=== PATIENT | male | born 1995 | race African-American/Black ===

== ENCOUNTER 2019-08-17 18:43 | Emergency (ER) | payer BC, SELFPAY ==
--- NOTE | ~2019-08-17 | CT_ITS ---
EXAMINATION: CT abdomen pelvis wo con DATE: 08/17/2019 19:34 INDICATION: Right flank pain radiating to groin TECHNIQUE: Computed tomography (CT) of the abdomen and pelvis was performed without intravenous contr ast. Automated exposure control and iterative reconstruction technique were employed. Exam dose: 724 .02 mGy-cm total exam DLP. COMPARISON: 06/25/2019 CT abdomen pelvis with IV contrast material FINDINGS: The lung bases are clear. Normal heart size. No pericardial or pleural effusion. The liver, gallbladder, bile ducts, spleen, pancreas and pancreatic duct are unremarkable. Normal mor phology of the adrenal glands. No renal mass lesion is evident on this limited noncontrast examinatio n. No urinary tract calculus or hydroureteronephrosis. Normal caliber of the abdominal aorta. No intraperitoneal or retroperitoneal or pelvic mass lesion or adenopathy or ascites. There are multiple nonenlarged mesenteric lymph nodes; consider mesenteric ad enitis. Normal appendix. No bowel obstruction. No intraperitoneal free air. The urinary bladder, prostate gland and seminal vesicles are unremarkable. Small fat-containing right greater than left inguinal hernias. Very small fat-containing umbilical he rnia. Included skeletal structures are unremarkable. IMPRESSION: Shotty nonenlarged mesenteric lymph nodes; consider mesenteric adenitis No urinary tract calculus or hydroureteronephrosis Normal appendix Reviewed, dictated and finalized at [facility] Reviewed, dictated and finalized at [facility] IMPRESSION: Shotty nonenlarged mesenteric lymph nodes; consider mesenteric bess nitis No urinary tract calculus or hydroureteronephrosis Normal appendix
[2019-08-17 18:51] VITALS: BP 144/91; PULSE 85; RESP 16; TEMP 36.3; O2SAT 100
[2019-08-17 19:02] LABS: Basophils Absolute Auto 0.1 K/mm3 (0.0-0.1); Basophils Percent Auto 0.7 % (0.2-1.2); Eosinophils Absolute Auto 0.1 K/mm3 (0-0.3); Eosinophils Percent Auto 1.3 % (0-4.4); Hematocrit 43.2 % (42.0-52.0); Hemoglobin 13.9 g/dL (14.0-18.0); Immature Granulocyte Absolute 0.03 K/mm3 (0.00-0.031); Immature Granulocyte Percent A 0.3 % (0-0.5); Lymphocytes Absolute Auto 2.29 K/mm3 (0.9-3.2); Mean Corpuscular HGB Conc 32.2 g/dl (32-36); Mean Corpuscular Hemoglobin 28.6 pg (26-34); Mean Corpuscular Volume 88.9 fl (80-100); Mean Platelet Volume 10.2 fl (7.4-10.4); Monocytes Absolute Auto 0.7 K/mm3 (0.1-0.6); Monocytes Percent Auto 6.6 % (2.6-8.5); Neutrophils Absolute Auto 7.2 K/mm3 (1.3-6.7); Neutrophils Percent Auto 69.1 % (45.5-73.1); Platelet Count Result 554 k/mm3 (150-375); Red Blood Count 4.86 M/mm3 (4.6-6.20); Red Cell Distribution Width 13.7 % (11.5-14.5); White Blood Count 10.4 K/mm3 (4.5-10.0)
[2019-08-17 19:07] LABS: Add Urine Microscopic? NO; Appearance Urine Clear (Clear); Bilirubin Urine Negative (Negative); Blood Urine Negative (Negative); Color Urine Yellow (Yellow); Glucose Urine UA Negative (Negative); Ketones Urine Negative (Negative); Leukocyte Esterase Ur Negative LEU/UL (Negative); Mucus Urine Rare /lpf; Nitrate Urine Negative (Negative); Protein Urine Negative (Negative); RBC Urine 0-2 /hpf (0-2); Specific Grav Ur 1.017 (1.001-1.035); Squamous Epithelial Cell Urine Rare /hpf (Few); Urobilinogen Urine Negative mg/dL (<2.0); WBC Urine 0-3 /hpf
[2019-08-17 19:14] LABS: Alanine Aminotransferase 37 U/L (4-50); Albumin Level 4.5 g/dL (3.5-5.1); Alkaline Phosphatase 189 U/L (38-126); Aspartate Amino Transferase 30 U/L (17-59); Bilirubin,Total 0.3 mg/dL (0.2-1.3); Blood Urea Nitrogen 12 mg/dL (9-20); Carbon Dioxide 30 mmol/L (22-30); Chloride 98 mmol/L (98-107); Estimated CRCL calculation 154 ml/min; Estimated Glomerular Filt Rate > 60; Glucose 94 mg/dL (75-110); Lipase 50 U/L (23-300); Potassium 3.8 mmol/L (3.4-5.0); Sodium 137 mmol/L (137-145)
--- NOTE | 2019-08-17 19:28 | ED.ABDPAIN ---
HPI - Abdominal Pain General Chief Complaint: Abdominal Pain Stated Complaint: R FLANK PAIN Time Seen by Provider: 08/17/19 19:03 Source: patient Mode of arrival: ambulatory Limitations: no limitations History of Present Illness HPI narrative: This is a 24 year old male that presents to the ER for right sided flank pain since yesterday. Associated with nausea and dysuria. Reports the pain radiates into his abdomen sometimes. Reports the pain is a constant dull ache and at times sharp. Reports he has been having diarrhea intermittently for the last couple months and had seen a GI doctor for this. He had a colonoscopy, but has not gotten the results yet. Denies fever, vomiting, or hematuria. Related Data Home Medications Medication Instructions Recorded Confirmed buspirone mg 08/17/19 08/17/19 escitalopram oxalate mg 08/17/19 omeprazole 08/17/19 Allergies Allergy/AdvReac Type Severity Reaction Status Date / Time shellfish derived Allergy Swelling Verified 08/17/19 18:56 of Lip/Tongue/Throat Review of Systems Review of Systems: Narrative: CONSTITUTIONAL: Denies fever GASTROINTESTINAL: Reports abdominal pain, nausea, diarrhea. Denies vomiting GENITOURINARY: Reports dysuria. Denies hematuria. MUSCULOSKELETAL: Reports back pain All systems reviewed & are unremarkable except as noted in HPI and below PMFSH Social History Social History (Updated 08/17/19 @ 19:33 by Jammie Conrad PA-C) Smoking status: Former smoker Substance use: never Gender identity (if verbalized by the patient): Male Exam Narrative: Exam Narrative: GENERAL: Well-appearing, well-nourished, and in no acute distress. HEAD: Normocephalic, atraumatic. EYES: EOMI. CHEST: Clear to auscultation. No respiratory distress. No wheezes rales or rhonchi HEART: Regular rate and rhythm. No murmur heard. Normal peripheral pulses. ABDOMEN: Soft, nontender, nondistended, normal active bowel sounds. No CVA tenderness EXTREMITIES: Normal range of motion. No edema. SKIN: Warm, dry, no rash. NEURO: No focal deficits. Alert and oriented x3. PSYCH: Normal mood and affect Course Consultations Consultation #1: Spoke with patient's GI doctor, Dr. Mohr. He would like him started on Cipro twice a day and will follow-up with him in clinic on Monday. Patient was given warnings to return to the ER Date: 08/17/19 Time: 20:26 Vital Signs Vital signs: Vital Signs Temperature 97.3 F L 08/17/19 18:51 Pulse Rate 85 08/17/19 18:51 Respiratory Rate 16 08/17/19 18:51 Blood Pressure 144/91 H 08/17/19 18:51 Pulse Oximetry 100 08/17/19 18:51 Temperature 97.3 F L 08/17/19 18:51 Pulse Rate 85 08/17/19 18:51 Respiratory Rate 16 08/17/19 18:51 Blood Pressure 144/91 H 08/17/19 18:51 Pulse Oximetry 100 08/17/19 18:51 MDM - Abdominal Pain MDM Narrative Medical decision making narrative: Patient presents the emergency department for right-sided flank pain and right-sided abdominal pain since yesterday. Also reports over the last couple of months he has been having intermittent diarrhea and has seen a GI doctor for this and had a colonoscopy. Patient is afebrile and nontoxic-appearing. White blood cell count mildly elevated to 10.4. Mild normocytic anemia with hemoglobin of 13.9. Metabolic panel is without acute changes, other than mild elevation in alk phos. UA is normal. CT abdomen pelvis shows shotty nonenlarged mesenteric lymph nodes, consider mesenteric adenitis. Spoke with patient's GI doctor, Dr. Mohr. He would like him started on Cipro twice a day and will follow-up with him in clinic on Monday. Patient was given warnings to return to the ER Lab Data Attestation: I reviewed the patient's lab results. Result diagrams: 08/17/19 18:57 08/17/19 18:57 Labs: Lab Results 08/17/19 08/17/19 08/17/19 Range/Units 18:57 18:57 18:57 WBC 10.4 H (4.5-10.0) K/mm3 RBC 4.86 (4.6-6.20) M/mm3 H
[2019-08-17 20:38] VITALS: BP 132/88; PULSE 88; RESP 16; O2SAT 97
== END 2019-08-17 20:59 | disposition home or self-care (01) ==
PROVIDERS: Emergency Provider Emergency Medicine; PCP Emergency Medicine
DX: I88.0 Nonspecific mesenteric lymphadenitis (principal); Z87.891 Personal history of nicotine dependence
CPT/HCPCS: 36415; 74176; 80053; 81003; 83690; 85025; 99284

== ENCOUNTER 2021-04-27 00:58 | Emergency (ER) | payer OTHER, SELFPAY ==
[2021-04-27 01:03] VITALS: BP 150/90; PULSE 83; RESP 19; TEMP 36.7; O2SAT 99
--- NOTE | 2021-04-27 01:21 | ED.DENTAL ---
HPI - Dental/Oral General Chief complaint: Dental/Oral Stated complaint: lower jaw pain Time Seen by Provider: 04/27/21 01:20 Source: patient Mode of arrival: ambulatory Limitations: no limitations History of Present Illness HPI Narrative: Patient is a 25-year-old male presenting for evaluation of right lower tooth and jaw pain. Patient reports he developed tooth pain yesterday. Pain is located at posterior, right lower molars, aching, throbbing in nature with radiation into the jaw. Patient reports pain with biting. Patient states he has not been to a dentist in many years and does have a history of dental cavities. He does not remember an inciting injury or biting onto something hard. No history of dental fracture. No trauma to the face. He reports pain with movement of the jaw. He denies neck swelling, difficulty swallowing, shortness of breath. No fever, chills, nausea, vomiting. No difficulty breathing. Patient has taken Tylenol and Midol without improvement in his symptoms. Patient denies ear pain or facial swelling. PT denies rhinorrhea, congestion or sore throat. Related Data Home Medications Medication Instructions Recorded Confirmed buspirone mg 08/17/19 08/17/19 escitalopram oxalate mg 08/17/19 omeprazole 08/17/19 Allergies Allergy/AdvReac Type Severity Reaction Status Date / Time shellfish derived Allergy Swelling Verified 04/27/21 01:06 of Lip/Tongue/Throat Review of Systems Review of Systems: CONSTITUTIONAL: Denies fever HEENT: Reports right lower jaw pain and tooth pain CARDIOVASCULAR: Denies chest pain RESPIRATORY: Denies cough or dyspnea. GASTROINTESTINAL: Denies abdominal pain SKIN: Denies rash MUSCULOSKELETAL: Denies back pain NEUROLOGIC: Denies headache [facility] Past Medical History Medical History Healthy adult Surgical History Surgical History No pertinent past surgical history Social History Social History Smoking status: Current every day smoker Tobacco type: e-cigarettes/vaping Substance use: never Gender identity (if verbalized by the patient): Male Exam Narrative: GENERAL: Awake, alert, conversant HEAD: Normocephalic, atraumatic. EYES: PERRLA and EOMI. ENT: Nares clear, no rhinorrhea or epistaxis. Mucous membranes moist. Uvula is midline. Dental caries present. No dental abscess or periapical abscess identifiable. No tongue edema. No trismus. Pain with palpation of tooth 30 and 31. NECK: Supple. No lymphadenopathy. No submandibular lymphadenopathy. No cervical adenopathy. CHEST: No respiratory distress, breathing even and non labored HEART: Regular rate, sinus rhythm ABDOMEN:Non distended, non tender EXTREMITIES: Normal range of motion. No edema. SKIN: Warm, dry, no rash. NEURO:No focal deficits. Alert and oriented x3 Course Vital Signs Vital signs: Vital Signs Temperature 36.7 C 04/27/21 01:03 Pulse Rate 83 04/27/21 01:03 Respiratory Rate 19 04/27/21 01:03 Blood Pressure 150/90 H 04/27/21 01:03 Pulse Oximetry 99 04/27/21 01:03 Temperature 36.7 C 04/27/21 01:03 Pulse Rate 83 04/27/21 01:03 Respiratory Rate 19 04/27/21 01:03 Blood Pressure 150/90 H 04/27/21 01:03 Pulse Oximetry 99 04/27/21 01:03 MDM - Dental/Oral MDM Narrative Medical decision making narrative: Patient's pain is consistent with dental caries/toothache. Pt with right lower molar pain and pain with palpation of tooth 30 and 31. At the time of assessment there are no signs of systemic illness, no focal signs of space-occupying abscess or lesions, no signs of Fermin angina or other concerning retropharyngeal infection. The patient is controlling her secretions well without signs of airway compromise. Patient given first dose of antibiotic in the ER as well as pain medica
[2021-04-27] MEDS: oxyCODONE/ACETAMINOPHEN (*CRX) 5-325 MG TABLET 1 TABLET PO (01:58)
[2021-04-27] MEDS: AMOXICILLIN/CLAVULANATE K 875-125 MG TAB 1 TABLET PO (01:58)
[2021-04-27] MEDS: KETOROLAC (*BKC) 60 MG/2 ML VIAL 30 MG IM (01:59)
[2021-04-27 02:07] VITALS: BP 155/85; PULSE 98; RESP 14; O2SAT 99
== END 2021-04-27 02:06 | disposition home or self-care (01) ==
PROVIDERS: Emergency Provider Emergency Medicine; PCP Emergency Medicine
DX: K08.89 Other specified disorders of teeth and supporting structures (principal)
CPT/HCPCS: 96372; 99283; A9270; J1885

== ENCOUNTER 2024-12-31 17:02 | Emergency (ER) | payer SELFPAY ==
--- NOTE | ~2024-12-31 | XR_ITS ---
EXAMINATION: XR chest 1V portable Exam Date/Time: 12/31/2024 17:53 CDT HISTORY: pre-syncope Comparison: 09/02/2017. RESULT: Lines, tubes, and devices: None. Lungs and pleura: Clear. Cardiomediastinal silhouette: Stable. Other: No acute osseous or upper abdominal finding. IMPRESSION: No acute cardiopulmonary process. Reviewed, dictated and finalized at location K.
--- OUTSIDE RECORDS SUMMARY | 2024-12-31 17:04 | XMS_ITS | Encounter Summary ---
Author Organization [facility] Address [address] [place] [address] Phone Care Team Providers Care Dtp Operator Name Role Phone Ayush Villagran Primary Care Provider [phone] Encounter Details Date Type Department Care Team (Late st Contact Info) Description 01/23/2020 Telephone [facility] [address] [address] Parker Pina MD [address] [address] Social History Tobacco Use Types Packs/Day Years Used Date Smoking Tobacco: Never Smokeless Tobacco: Never Alcohol Use Standard Drinks/Week Comments Never 0 (1 standard drink = 0.6 oz pur e alcohol) AUDIT-C Answer Date Recorded Frequency of Alcohol Consumption Never 07/26/2019 Average Number of Drinks Not on file 020 Frequency of Binge Drinking Not on file 07/07 PHQ-2 Answer Date Recorded Total Score - Questions 1-9 0 10/03 Education Answer Date Recorded What is the highest level of school you have completed or the highest degree you have received? 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 documented in this encounter Plan of Treatment Not on file documented as of this encounter Visit Diagnoses Not on filedocumented in this encounter Additional Health Concerns Assessment Noted Time PHQ-9 Depression Total Score: 0 10/17/19 20 11:03 AM CDT documented as of this encounter Care Teams Dtp Operator Relationship Specialty Start Date End Date Ayush Villagran [address] [place] [address] PCP - General Family Medicine 07/17/19 documented as of this encounter
--- OUTSIDE RECORDS SUMMARY | 2024-12-31 17:04 | XMS_ITS | Clinical Summary ---
Author Organization [facility] Address [address] [place] [address] Phone Care Team Providers Care Supervisor Production Name Role Phone Ayush Villagran Primary Care Provider [phone] Allergies Active Allergy Reactions Criticality Noted Date Comments Shellfish Allergy Itching 07/26/2019 Throat itchy Medications escitalopram (LEXAPRO) 10 MG Tablet TK 1 T PO QD 0 Active omeprazole (PRILOSEC) 20 MG CAPSULE DELAYED RELEASE TK 1 C PO QD AC 0 Active busPIRone HCl 7.5 MG Tablet TK 1 T PO BID 0 Active EPINEPHRINE HCL, ANAPHYLAXIS, IM by Intramuscular route. Active ferrous sulfate 325 (65 Fe) MG Tablet Take 1 Tab by mouth daily. 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 file Not on file Not on file Last Filed Vital Signs Vital Sign Reading Time Taken Comments Blood Pressure 124/80 10/17/2019 11:00 AM CDT Pulse 110 10/17/2019 11:00 AM CDT Temperature 36.2 C (97.1 F) 10/17/2019 11:00 AM CDT Respiratory Rate 18 10/17/2019 11:00 AM CDT Oxygen Saturation 96% 10/17/2019 11:00 AM CDT Inhaled Oxygen Concentration - - Weight 94.3 kg (208 lb) 10/17/2019 11:00 AM CDT Height 172 cm (5' 7.72) 10/17/2019 11:00 AM CDT Body Mass Index 31.89 10/17/2019 11:00 AM CDT Plan of Treatment Health Maintenance Due Date Last Done Comments Hepatitis C Virus (HCV) Screening 1994 TdaP Immunization 1994 Human Papillomavirus (HPV) Immunization (1 - Male 3-dose series) 2009 Hepatitis B Immunization (1 of 3 - 19+ 3-dose series) 2013 SARS-COV-2 Immunization ( - 2023- season) 2024 Influenza Immunization (#1) 2025 Respiratory Syncytial Virus (RSV) Immunization (Adult) (1 - 1-dose 75+ series) 2069 Meningococcal Immunization (ACWY) Aged Out No longer eligible based on patient's age to complete this topic Pneumococcal Immunization Combined Aged Out No longer eligible based on patient's age to complete this topic Rotavirus Immunization Aged Out No lo nger eligible based on patient's age to complete this topic Insurance [facility] Care Teams Supervisor Production Relationship Specialty Start Date End Date Ayush Villagran [address] [place] [address] PCP - General Family Medicine 07/17/19
--- OUTSIDE RECORDS SUMMARY | 2024-12-31 17:04 | XMS_ITS | Continuity of Care Document ---
Author Organization [facility] Address [address] [place] [address] Phone Care Team Providers Care Risk Advisor Name Role Phone Ayush Villagran MD Unavailable Unavailable Allergies, Adverse Reactions, Alerts Substance Reaction Status Criticality No Known Allergies Active No Inform ation Medications Medication Instructions Dosage Effective Dates (start - stop) Status Comments buspirone 7.5 mg tablet take 1 tablet by oral route 2 times every day 7.5 MG - Active avoid driving or operate machines Lexapro 10 mg tablet take 1 tablet by oral route every day 10 MG - Active Nexium 20 mg capsule,delayed release take 1 capsule by oral route every day at least 1 hour before a meal swallowing whole. Do not crush or chew granules. 20 MG - Active Procedures Procedure Date PREV VISIT, EST, AGE 18-39 OFFICE/OUTPATIENT VISIT, EST OFFICE/OUTPATIENT VISIT, EST OFFICE/OUTPATIENT VISIT, EST PREV VISIT, EST, AGE 18-39 OFFICE/OUTPATIENT VISIT, EST OFFICE/OUTPATIENT VISIT, EST OFFICE/OUTPATIENT VISIT, EST OFFICE/OUTPATIENT VISIT, EST PREV VISIT, NEW, AGE 18-39 OFFICE/OUTPATIENT VISIT, NEW Advance Directives Directive Yes / No Effective Date File Name No Information Encounters Encounter Description Practice Location Reason(s) For Visit Diagnoses Date Provider Providers Copied on Encounter [facility], [address] [place] [address], [id number], [place] tel:[phone] [facility] No Information Aug- 2 Tyshawn Peacock. [address], [address], [place], [place], [address] , [place]. tel:[phone] Referring Provider: Randy Arango [address], [place], [place], [id number]. tel:[phone] PREV VISIT, EST, AGE 18-39 [facility], [address], [place], [place], [address], [place] tel:[phone] [facility] physical (chief complaint) Encounter for general adult medical exam w abnormal findingsGeneralized Anxiety DisorderAbnormal level of alkaline phosphataseGERD w/o esophagitisAbnormal weight gainFatigue 0- 1 Tyshawn Peacock. [address], [place], [place], [address] , [place]. tel:[phone] Referring Provider: Randy Arango [address], [place], [place], [address]. tel:[phone] OFFICE/OUTPA TIENT VISIT, EST [facility], [address], [place], [place], [address], [place] tel:[phone] [facility] platelet1 (chief complaint) GERD1 (chief complaint) anxiety1 (chief complaint) Essential thrombocytosisGERD w/o esophagitisAbnormal level of alkaline phosphataseGenerali zed Anxiety DisorderIleitis Dec-0 2 0 Tyshawn Peacock. [address], [address], [place], [place], [address] , [place]. tel:[phone] Referring Provider: Randy Arango [address], [place], [place], [address]. tel:[phone] OFFICE/OUTPA TIENT VISIT, EST [facility], [address], [place], [place], [address], [place] tel:[phone] [facility] abd pain1 (chief complaint) alk phos (chief complaint) Abnormal level of alkaline phosphataseEssentia l thrombocytosisLeuko cytosisIleitisGERD w/o esophagitis Kam-2 8 0 Tyshawn Peacock. [address], [place], [place], [address] , [place]. [phone] Referring Provider: Randy Arango [address], [place], [place], [address]. tel:[phone] PREV VISIT, EST, AGE 18-39 [facility], [address], [place], [place], [address], [place] [phone] [facility] Medicine physical (chief complaint) Encounter for general adult medical exam w abnormal findingsGeneralized Anxiety DisorderAbdominal painFatigueEssentia l (primary) hypertensionGERD w/o esophagitisPain in left upper arm 9 Tyshawn Santiago [address], [place], [place], [address] , [place]. [phone] Referring Provider: Randy Arango [address], [place], [place], [address]. tel:[phone] OFFICE/OUTPA TIENT VISIT, EST [facility], [address], [place], [place], [address], [place] tel:[phone] [facility] anxiety1 (chief complaint) Generalized Anxiety Disorder 0 8 Tyshawn Santiago [address], [place], [place], [address] , [place]. [phone] Referring Provider: Randy Arango [address], [place], [place], [address]. tel:[phone] OFFICE/OUTPA TIENT VISIT, EST [facility], [address], [place], [place], [address], [place] tel:[phone] [facility] anxiety1 (chief complaint) rectal bleeding (chief complaint) chest pain1 (chief complaint) GERD1 (chief complaint) PleurisyGERD w/o esophagitisGenerali zed Anxiety DisorderOccult blood in stool 8 Tyshawn Santiago [address], [place], [place], [address] , [place]. tel:[phone] Referring Provider: Ayush Villagran, [address], [place], [place], [address]. tel:[phone] OFFICE/OUTPA TIENT VISIT, EST [facility], [address], [place], [place], [address], [place] [phone] [facility] anxiety1 (chief complaint) diarrhea1 (chief complaint) chest pain1 (chief complaint) Chest painPleurisyViral infectionGeneralize d Anxiety Disorder Apr-1 8 Tyshawn Peacock. [address], [place], [place], [address] , [place]. tel:[phone] Referring Provider: Randy Arango [address], [place], [place], [address]. tel:[phone] PREV VISIT, NEW, AGE 18-39 [facility], [facility] [address], [place], [address], [place] [phone] [facility] Physical (chief complaint) Encounter for general adult medical exam w abnormal findingsChest painLoss of appetiteGeneralized Anxiety Disorder Apr-0 8 Tyshawn Peacock. [address], [place], [place], [address] , [place]. [phone] Referring Provider: Randy Arango [address], [place], [place], [address]. tel:[phone] Family History Family Member Type Diagnosis Age At Onset Maternal grandfather Problem (finding) Coronary artery disease, premature Brother Problem (finding) Alive and well Mother Problem (finding) Alive and well Father Problem (finding) at 40 for unkonwn reason Payers Payer name Insurance type Covered green party ID Authoriza tion(s) No Information Social History Type Description Quantity Date Captured Comments Sex Male Smoking Status No Information Chief Complaint And Reason For Visit No Information Plan Of Treatment Date Type Action Status Goal Tobacco cessation counseling completed Goal Tobacco cessation counseling completed Goal Special diet education compl eted Goal Prescribed diet education co mpleted Goal Special diet education compl eted Goal Prescribed dietary intake co mpleted Referral Ordered: Gastroenterology (related to Ileitis) ordered Referral Ordered: Hematology (related to Essential thrombocytosis) ordered Referral Ordered: Referrals: Gastroenterology. Evaluate and treat ordered Referral Ordered: Referrals: Hematology. Evaluate and treat ordered Referral Ordered: Cardiology (related to Encounter for general adult medical exam w abnormal findings) ordered Referral Ordered: Referrals: Cardiology. Evaluate and treat ordered Referral Ordered: EKG for initial prevent exam ordered Referral Ordered: CHEST X-RAY PA/LAT TWO-VIEWS ordered Referral Ordered: SLEEP STUDY, ATTENDED ordered Referral Ordered: Jossue Ferrera [facility] : Internal Medicine : Cardiovascular Disease (related to Chest pain) ordered Referral Referred To: Jossue Ferrera [address] [place], [place] [address] Ordered: Referrals: [facility] Phys[facility] : Internal Medicine : Cardiovascular Disease. Jossue Ferrera. Evaluate and treat ordered Referral Ordered: US VENOUS DOPPLER Left ordered History Of Present Illness Encounter Date Complaint History Of Prese nt Illness physical Pt needs annual physical pt has chronic GERD Pt takes nexium OTC now and he is doing ok Pt also had small capsule study which was ok per pt ,Pt never had EGD done. He did do colonoscopy and was told ok. His GERD is well controlled with nexium. ,Pt has chronic anxiety and depression Pt takes lexapro and buspar and doing ok Pt denies any suicidal or homicidal thought Pt denies crying spells. Pt overall feels better. Pt gained some weight. Pt is sedentary anxiety1 Pt has chronic a nxiety and depression .Pt takes lexapro and buspar and doing ok Pt denies any suicidal or homicidal thought ,Pt denies any crying spells. GERD1 Pt has GERD Pt h ad ileitis. Pt has some mesenteric adenitis on recent CT scan and his Gi is aware per patient. Pt is on dexilant now and he is off protonix ,Pt states that GERD is well controlled Pt still has intermittent periumbilical sharp abdominal pain Pt had benign colonoscopy and also small capsule study and he was told that his small intestine is swelling but not sure why. pt states that he was told to go back for EGD soon. He also had some CT scan at GI office but he is not sure what it is. he told me he had to drink some dye for it Pt denies any acute pain platelet1 Pt has high plat elet. Pt denies any bleeding or bruising pt is seeing hematology currently and is getting work up abd pain1 Pt c/o acute ons et of right side and right flank pain, which is dull in nature since two weeks ago. Pt has some nonbloody diarrhea and some vomiting episodes since then and he went to ER on 06/25/19. Pt had Ct done which showed chronic ileitis, possible IBD. Pt was given cipro and flagyl and he currently denies any abd pain anymore but he still has some diarrhea without blood. Pt states that omeprazole is not helping with his heartburn whatsoever. Pt denies any abd pain with food .Pt does have bloating and burping chronically. alk phos Pt has high alk phos. Pt has high platelet, high wbc and high neutrophile. Pt denies any bleeding or bruising. physical Pt needs annual physical. pt has chronic anxiety and depression Pt was taking lexapro and buspar but he stopped taking above meds for a while since he felt better but then he felt worse again and he restarted lexapro and buspar again since 3 weeks ago and his mood is getting better Pt denies any suicidal or homicidal thought. Pt states that he has been checking his BP at [facility] and is running around 130-140s/80 during last 5 days. Pt c/o left shoulder and left arm pressure and some dizziness feeling for the past one week. Pt denies any chest pain. Pt c/o feeling of sob during last 4-5 days. Pt denies any recent travel or bedrest. Pt denies any calf pain Pt feels that he can not get enough air. Pt denies any chest tightness or chest pain. Pt c/o right flank pain in the morning for 2-3 weeks. Pt c/o sharp pain. Pt notices dysuria. Pt denies any urinary urgency or frequency. Pt feels very tired for the past 2-3 weeks. Pt denies any headache pt snores at night. Pt has chronic severe GERD pt is on OTC zantac daily again, Pt states that he has vomiting sometimes due to gERd pt denies any abd pain anxiety1 Pt has chronic a nxiety and depression. Pt takes lexapro and buspar and doing ok. Pt denies any suicidal or homicidal thought. Pt denies any crying spells GERD1 Pt denies any GE RD or nausea. Pt stopped zantac chest pain1 Pt took zpak and his chest pain resolved. Pt denies any sob Pt denies any palpitation rectal bleeding Additional infor mation: Pt notices bright red blood when he wipes x one since yesterday Pt notices mild diarrhea since yesterday. pt denies any abdominal pian Pt notices mild burning around anal area since last night. anxiety1 Pt has mild anxi ety and depression. Pt takes lexapro and buspar and he is doing much better. Pt denies any suicidal or homicidal thought. Pt denies any crying spells His mood is getting better chest pain1 Pt c/o sharp alyson st pain front of chest area when he takes deep breath for 3 days. Pt denies any calf pain. Pt denies any recent travel or bedrest Pt just had negative left leg venous study. Pt denies any sob. Pt denies any coughing. Pt just seen cardiology recently and had normal EKG and he was reassured and he may do a stress test soon if continues. diarrhea1 Pt has been havi ng watery diarrhea without nausea, vomiting for one week. Pt did have abd pain but resolved. Pt did have nausea, vomiting but has not had above since 3 days ago. pt is able to eat and drink fluid without any issue. Pt denies any fever, chill anxiety1 Pt has chronic a nxiety and depression and he has been taking lexapro and buspar which did help Physical Pt needs annual physical Pt notices some dull ache left side chest area wit radiating down to left arm for one week. Pt states that the symptoms occur on and off. Pt denies any exertion related symptoms Pt sometimes wakes up with it. Pt states that it occurs randomly during the day without any proving factor. Pt denies any diaphoresis. Pt state that he also has poor appetite as well during last week. Pt went to ER twice and he had normal chest x ray and also d dimer and he had two normal EKG. Pt also had negative troponin. pt was treated with amoxil and zantac and none helped. Pt denies any GERD symptoms. Pt states that he just de [place] cruz snot want to eat. Pt also has been having anxiety and depression for long time, seems worse during last week. Pt denies any suicidal or homicidal thought. Pt had several crying spells. Pt denies any acute symptoms Pt feels mild nausea with food. Pt denies any abd pain. Pt denies any recent travel. Pt c/o left calf pain since two days ago No sob Instructions Date Instruction Additional Infor mation Special diet education Related t o Body mass index (BMI) 31.0-31.9, adult Increase physical activity Relat ed to Generalized Anxiety Disorder Weight management Related to Gen eralized Anxiety Disorder Prescribed diet education Relate d to Body mass index (BMI) 29.0- 29.9, adult Weight management Related to Ple urisy Weight management Related to Alyson st pain Special diet education Related t o Body mass index (BMI) 29.0-29.9, adult Quit smoking Related to Encou nter for general adult medical exam w abnormal findings Prescribed dietary intake Relate d to Body mass index (BMI) 29.0- 29.9, adult Assessments Type Assessment Date No Information
--- OUTSIDE RECORDS SUMMARY | 2024-12-31 17:04 | XMS_ITS | Patient Health Record ---
Author Organization [facility] Address [address] [place] [address] Care Team Providers Care Distance Learning Unit Leader Name Role Phone Quinton Suarez Primary Care Provider Erica Dior Unavailable [phone] Allergies No Known Allergies Reason For Referral No Information Medications Medication SIG (Take, Route, Frequency, Duration) Notes Start Date End Date Status busPIRone HCl 7.5 MG 1 tablet Orally Twi ce a day Active Albuterol Sulfate HFA 108 (90 Base) MCG/ACT 1 puff as needed Inhalation every 4 hrs; Duration: 10 days 06/30/2021 Active Famotidine 20 MG 1 tablet at bedtime as needed Orally Once a day; Duration: 30 day(s) 08/19/2021 Active Blood Pressure Kit - as directed twice a day; Duration: 999 days 04/13/2022 Active Escitalopram Oxalate 20 MG TAKE 1 TABLET BY MOUTH EVERY DAY Active Omeprazole 40 MG 1 capsule 30 minutes before morning meal Orally Once a day; Duration: 30 day(s) 05/01/2020 Not-Taking Social History Tobacco Use: Social History Observation Description Date Details (start date - stop date) Current Smoker NA - NA Sex Assigned At : Social History Observation Description Sex Assigned At Male Dont use, Tobacco Use/Smoking Question Answer Notes Are you a nonsmoker Alcohol Screen (Audit-C) Question Answer Notes Did you have a drink containing alcohol in the p ast year? No Tobacco Control (Standard) Question Answer Notes Tobacco use: Current smoker Problems Problem Type SNOMED Code ICD Code Onset Dates Problem Status W/U Status Risk Notes Problem Tobacco user (719203467) Nicotine dependence, unspecified, uncomplicated (F17.200) Active confirmed Problem Chronic pain (17899039) Other chronic pain (G89.29) Active confirmed Problem Mixed anxiety and depressive disorder (215917717) Depression with anxiety (F41.8) Active confirmed Problem Obese class I (finding) (861862552137113) Obesity (BMI 30.0-34.9) (E66.9) Active confirmed Problem Gastroesophageal reflux disease without esophagitis (997897062) Gastroesophageal reflux disease without esophagitis (K21.9) Active confirmed Encounters Encounter Location Date Provider Diagnosis [facility] [address], [place] [address] 12/31/2024 Erica Carrillo R21 Assessments Encounter Date Diagnosis (ICD Code) Assessment Notes Treatment Notes Treatment Clinical Notes Section Notes 12/31/2024 Rash (ICD-10 - R21) Plan Of Treatment Next Appt Details Provider Name:Erica Dior , 01/06/2025 09:40:00 AM, [address] [facility] , [place], [address], Insurance Providers Payer Name Payer Address Payer Phone Subscriber Number Group Number Insured Name Patient Relationship to Insured Coverage Start Date Coverage End Date [employer] [address] [place] [address] [id number] Real Ward Self - patient is the insured 2022 Medical (General) History Medical History History ICD Code Generalized anxiety disorder F41.1 Depression F32.9 Surgical History Surgery Date(Month/Year) Hospitalization History Reason Date(Month/Year)
[2024-12-31 17:06] VITALS: BP 91/60; PULSE 93; RESP 18; TEMP 36.6; O2SAT 99
--- NOTE | 2024-12-31 17:11 | ECG_ITS ---
Test Date: 2024-12-31 17:31:37 Measurements Intervals [place] Rate: 88 P: 39 MO: 112 QRS: 50 QRSD: 85 T: 87 QT: 341 QTc: 414 Interpretive Statements SINUS RHYTHM WITH SHORT MO INTERVAL NONSPECIFIC T-WAVE ABNORMALITY Electronically Signed On 12-31-2024 17:34:44 CDT by Silvestre Shah D.O
--- NOTE | 2024-12-31 17:12 | ED.GENADULT ---
HPI - General Adult General Chief complaint: Unspecified <Clarisse Wen PA-C - Last Filed: 12/31/24 17:13> Stated complaint: dehydration <Clarisse Wen PA-C - Last Filed: 12/31/24 17:13> Time Seen by Provider: 12/31/24 17:59 <Clarisse Wen PA-C - Last Filed: 12/31/24 17:13> Focused HPI: 29-year-old male with reported history of panic disorder presents to the emergency department for an episode of presyncope that occurred prior to arrival. 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 States he began to feel overheated, went into his car and felt like he was going to pass out. He states he began developing tunnel vision and lightheadedness. He does not believe he fully passed out. When his symptoms improved he went to urgent care and was redirected to the emergency department. He denies associated chest pain, shortness of breath, abdominal pain, head injury or trauma. States he has not had much to drink today. GENERAL: Well-appearing, well-nourished, and in no acute distress. HEAD: Normocephalic, atraumatic. CHEST: Clear to auscultation. ?No respiratory distress. HEART: Regular rate and rhythm.? NEURO: ?Alert and oriented x3. Patient screened in triage and initial orders placed.? ?Additional care and disposition to be based upon?diagnostic testing and treatment. <Clarisse Wen PA-C - Last Filed: 12/31/24 17:13> Related Data Home medications: Home Medications ?Medication ?Instructions ?Recorded ?Confirmed ?Last Taken ?Type buspirone 7.5 mg tablet mg 08/17/19 08/17/19 Unknown History escitalopram oxalate 10 mg tablet mg 08/17/19 Unknown History omeprazole 20 mg capsule,delayed 08/17/19 Unknown History release <Clarisse Wen PA-C - Last Filed: 12/31/24 17:13> Allergies/adverse reactions: Allergies Allergy/AdvReac Type Severity Reaction Status Date / Time shellfish derived Allergy Swelling Verified 04/27/21 01:06 of Lip/Tongue/Throat <Clarisse Wen PA-C - Last Filed: 12/31/24 17:13> Review of Systems Review of Systems: All systems reviewed & are unremarkable except as noted in HPI and below <Karma Avery APRN - Last Filed: 12/31/24 19:59> PMFSH Past Medical History Medical History: Medical History Healthy adult <Clarisse Wen PA-C - Last Filed: 12/31/24 17:13> Surgical History Surgical History: Surgical History No pertinent past surgical history <Clarisse Wen PA-C - Last Filed: 12/31/24 17:13> Social History Social History: Social History Smoking status: Current every day smoker Tobacco type: e-cigarettes/vaping Substance use: never Gender identity (if verbalized by the patient): Male <Clarisse Wen PA-C - Last Filed: 12/31/24 17:13> Exam Narrative: GENERAL: Well appearing, well-nourished, non-toxic, in no acute distress. HEAD: Normocephalic, atraumatic. NECK: Supple. No adenopathy, no masses. RESPIRATORY: Airway patent, respirations nonlabored. Clear to auscultation bilaterally, no rales, rhonchi, wheezing. CARDIOVASCULAR: Regular rate and rhythm without murmurs, rubs, or gallops. Peripheral pulses 2+ and equal bilaterally. ABDOMINAL: Soft, nontender, nondistended, no hepatosplenomegaly. Normoactive BS. MUSCULOSKELETAL: Moves all extremities. Strength/ROM intact without gross deformities. SKIN: Warm, dry, normal color. No rashes. NEURO: A&O X3. Speech clear. Cranial nerves II-XII intact. No ataxic movements. PSYCHIATRIC: Appropriate mood and affect. Normal interaction. <Karma Aveyr APRN - Last Filed: 12/31/24 19:59> Course Vital Signs Vital signs: Vital Signs Temperature 36.6 C 12/31/24 17:06 Pulse Rate 93 12/31/24 17:06 Respiratory Rate 18 12/31/24 17:06 Blood Pressure 91/60 L 12/31/24 17:06 Pulse Oximetry 99 12/31/24 17:06 Oxygen Delivery Room Air 12/31/24 17:06 Temperature 36.6 C 12/31/24 17:06 Pulse Rate 85 12/31/24 18:10 Respiratory Rate 16 12/31/24 18:08 Blood Pressure 103/58 L 12/31/24 18:08 Pulse Oximetry 97 12/31/24 18:08 Oxygen Delivery Room Air 12/31/24 17:06 <Clarisse Wen PA-C - Last Filed: 12/31/24 17:13> Vital Signs Temperature 36.6 C 12/31/24 17:06 Pulse Rate 93 12/31/24 17:06 Respiratory Rate 18 12/31/24 17:06 Blood Pressure 91/60 L 12/31/24 17:06 Pulse Oximetry 99 12/31/24 17:06 Oxygen Delivery Room Air 12/31/24 17:06 Temperature 36.6 C 12/31/24 17:06 Pulse Rate 85 12/31/24 18:10 Respiratory Rate 16 12/31/24 18:08 Blood Pressure 103/58 L 12/31/24 18:08 Pulse Oximetry 97 12/31/24 18:08 Oxygen Delivery Room Air 12/31/24 17:06 <Karma Avery, INTERNATIONAL ORGANIZER - Last Filed: 12/31/24 19:59> Medical Decision Making MDM Narrative Medical decision making narrative: 29-year-old male with reported history of panic disorder presents to the emergency department for an episode of presyncope that occurred prior to arrival. 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 States he began to feel overheated, went into his car and felt like he was going to pass out. He states he began developing tunnel vision and lightheadedness. He does not believe he fully passed out. When his symptoms improved he went to urgent care and was redirected to the emergency department. He denies associated chest pain, shortness of breath, abdominal pain, head injury or trauma. States he has not had much water to drink today. Labs Ordered: CBC, CMP, troponin, magnesium, CK, UA, UDS Imaging Ordered: Chest x-ray Medications Ordered: 1 L normal saline IV bolus Results: Patient's chest x-ray indicates No acute cardiopulmonary process. His CBC indicates white blood cell count 13, platelet count of 505, and neutrophil count of 79.3%. His CMP indicates and alk phos of 152. Patient's urinalysis indicates protein 1+. Diagnosis: Mild dehydration Patient Education/Shared MDM: Results of lab work shared with patient. He endorses improvement of symptoms following medication administration. Patient strongly advised to maintain hydration status upon discharge and follow-up with his PCP as soon as possible. He will be discharged home with no new prescriptions. Strict return precautions provided. Patient verbalized understanding and is in agreement with plan. Vital signs stable at time of discharge. All questions answered. <Karma Avery, INTERNATIONAL ORGANIZER - Last Filed: 12/31/24 19:59> Differential Diagnosis Differential Diagnosis: Dehydration, rhabdomyolysis, urinary tract infection, abnormal electrolytes <Karma Avery, INTERNATIONAL ORGANIZER - Last Filed: 12/31/24 19:59> Vital Signs Vital Signs: Vital Signs Temperature 36.6 C 12/31/24 17:06 Pulse Rate 93 12/31/24 17:06 Respiratory Rate 18 12/31/24 17:06 Blood Pressure 91/60 L 12/31/24 17:06 Pulse Oximetry 99 12/31/24 17:06 Oxygen Delivery Room Air 12/31/24 17:06 Temperature 36.6 C 12/31/24 17:06 Pulse Rate 85 12/31/24 18:10 Respiratory Rate 16 12/31/24 18:08 Blood Pressure 103/58 L 12/31/24 18:08 Pulse Oximetry 97 12/31/24 18:08 Oxygen Delivery Room Air 12/31/24 17:06 <Clarisse Wen PA-C - Last Filed: 12/31/24 17:13> Vital Signs Temperature 36.6 C 12/31/24 17:06 Pulse Rate 93 12/31/24 17:06 Respiratory Rate 18 12/31/24 17:06 Blood Pressure 91/60 L 12/31/24 17:06 Pulse Oximetry 99 12/31/24 17:06 Oxygen Delivery Room Air 12/31/24 17:06 Temperature 36.6 C 12/31/24 17:06 Pulse Rate 85 12/31/24 18:10 Respiratory Rate 16 12/31/24 18:08 Blood Pressure 103/58 L 12/31/24 18:08 Pulse Oximetry 97 12/31/24 18:08 Oxygen Delivery Room Air 12/31/24 17:06 <Karma Avery APRN - Last Filed: 12/31/24 19:59> Lab Data Lab results reviewed: Yes I reviewed the patient's lab results. <Karma Avery APRN - Last Filed: 12/31/24 19:59> Result diagrams: 12/31/24 17:34 12/31/24 17:34 <Clarisse Wen PA-C - Last Filed: 12/31/24 17:13> Labs: Lab Results 12/31/24 12/31/24 Range/Units 17:34 19:07 WBC 13.0 H (4.5-10.0) K/mm3 RBC 4.85 (4.6-6.20) M/mm3 Hgb 14.1 (14.0-18.0) g/dL Hct 43.1 (42.0-52.0) % MCV 88.9 (80-100) fl MCH 29.1 (26-34) pg MCHC 32.7 (32-36) g/dl RDW 13.6 (11.5-14.5) % Plt Count 505 H (150-375) k/mm3 MPV 10.4 (7.4-10.4) fl Immature Gran % (Auto) 0.2 (0-0.5) % Neut % (Auto) 79.3 H (45.5-73.1) % Lymph % (Auto) 13.0 L (18.3-44.2) % [place] % (Auto) 5.9 (2.6-8.5) % Eos % (Auto) 0.9 (0-4.4) % Baso % (Auto) 0.7 (0.2-1.2) % Lymph # (Auto) 1.69 (0.9-3.2) K/mm3 [place] # (Auto) 0.8 H (0.1-0.6) K/mm3 Eos # (Auto) 0.1 (0-0.3) K/mm3 Baso # (Auto) 0.1 (0.0-0.1) K/mm3 Abs Immat Gran (auto) 0.03 (0.00-0.031) K/mm3 Absolute Neuts (auto) 10.3 H (1.3-6.7) K/mm3 Absolute Nucleated RBC 0.000 (0.0-0.012) K/mm3 Nucleated RBC % 0.0 (0.0-0.2) % Sodium 138 (137-145) mmol/L Potassium 4.2 (3.4-5.0) mmol/L Chloride 105 (98-107) mmol/L Carbon Dioxide 23 (22-30) mmol/L Anion Gap 10 (4-12) mmol/L BUN 11 (9-20) mg/dL Creatinine 0.97 (0.7-1.3) mg/dL Estim Creat Clear Calc 115 ml/min Estimated GFR > 60 (59 - ) Glucose 96 (65-110) mg/dL Calcium 8.7 (8.4-10.2) mg/dL Magnesium 2.0 (1.6-2.3) mg/dL Total Bilirubin 0.5 (0.2-1.3) mg/dL AST 32 (17-59) U/L ALT 35 (6-50) U/L Alkaline Phosphatase 152 H (38-126) U/L Total Creatine Kinase 110 (55-170) U/L Troponin I < 0.012 (0.000-0.034) ng/mL Total Protein 7.9 (6.3-8.2) g/dL Albumin 4.2 (3.5-5.1) g/dL Urine Color Yellow (Yellow) Urine Appearance Clear (Clear) Urine pH 6.5 (5.0-9.0) Ur Specific Stephens 1.021 (1.001-1.035) Urine Protein 1+ H (Negative) mg/dL Urine Glucose (UA) Negative (Negative) mg/dL Urine Ketones Negative (Negative) mg/dL Ur Blood (Man) Negative (Negative) Urine Nitrate Negative (Negative) Urine Bilirubin Negative (Negative) Urine Urobilinogen 1.0 (<2.0) mg/dL Add Ur Microanalysis Reviewed Leukocyte Esterase Rfl Negative (Negative) JOSE/UL Urine RBC 0-2 (0-2) /hpf Urine WBC 0-5 (0-3) /hpf Ur Squamous Epith Cells None seen (Few) /hpf Urine Bacteria None seen /hpf Urine Casts 11-20 Hyaline Casts Present (None) /lpf Urine Opiates Screen Pending Urine Methadone Screen Pending Ur Barbiturates Screen Pending Ur Phencyclidine Scrn Pending Ur Amphetamine Screen Pending U Benzodiazepines Scrn Pending Urine Cocaine Screen Pending U Cannabinoids Screen Pending <Clarisse Wen PA-C - Last Filed: 12/31/24 17:13> Lab Results 12/31/24 12/31/24 Range/Units 17:34 19:07 WBC 13.0 H (4.5-10.0) K/mm3 RBC 4.85 (4.6-6.20) M/mm3 Hgb 14.1 (14.0-18.0) g/dL Hct 43.1 (42.0-52.0) % MCV 88.9 (80-100) fl MCH 29.1 (26-34) pg MCHC 32.7 (32-36) g/dl RDW 13.6 (11.5-14.5) % Plt Count 505 H (150-375) k/mm3 MPV 10.4 (7.4-10.4) fl Immature Gran % (Auto) 0.2 (0-0.5) % Neut % (Auto) 79.3 H (45.5-73.1) % Lymph % (Auto) 13.0 L (18.3-44.2) % [place] % (Auto) 5.9 (2.6-8.5) % Eos % (Auto) 0.9 (0-4.4) % Baso % (Auto) 0.7 (0.2-1.2) % Lymph # (Auto) 1.69 (0.9-3.2) K/mm3 [place] # (Auto) 0.8 H (0.1-0.6) K/mm3 Eos # (Auto) 0.1 (0-0.3) K/mm3 Baso # (Auto) 0.1 (0.0-0.1) K/mm3 Abs Immat Gran (auto) 0.03 (0.00-0.031) K/mm3 Absolute Neuts (auto) 10.3 H (1.3-6.7) K/mm3 Absolute Nucleated RBC 0.000 (0.0-0.012) K/mm3 Nucleated RBC % 0.0 (0.0-0.2) % Sodium 138 (137-145) mmol/L Potassium 4.2 (3.4-5.0) mmol/L Chloride 105 (98-107) mmol/L Carbon Dioxide 23 (22-30) mmol/L Anion Gap 10 (4-12) mmol/L BUN 11 (9-20) mg/dL Creatinine 0.97 (0.7-1.3) mg/dL Estim Creat Clear Calc 115 ml/min Estimated GFR > 60 (59 - ) Glucose 96 (65-110) mg/dL Calcium 8.7 (8.4-10.2) mg/dL Magnesium 2.0 (1.6-2.3) mg/dL Total Bilirubin 0.5 (0.2-1.3) mg/dL AST 32 (17-59) U/L ALT 35 (6-50) U/L Alkaline Phosphatase 152 H (38-126) U/L Total Creatine Kinase 110 (55-170) U/L Troponin I < 0.012 (0.000-0.034) ng/mL Total Protein 7.9 (6.3-8.2) g/dL Albumin 4.2 (3.5-5.1) g/dL Urine Color Yellow (Yellow) Urine Appearance Clear (Clear) Urine pH 6.5 (5.0-9.0) Ur Specific Stephens 1.021 (1.001-1.035) Urine Protein 1+ H (Negative) mg/dL Urine Glucose (UA) Negative (Negative) mg/dL Urine Ketones Negative (Negative) mg/dL Ur Blood (Man) Negative (Negative) Urine Nitrate Negative (Negative) Urine Bilirubin Negative (Negative) Urine Urobilinogen 1.0 (<2.0) mg/dL Add Ur Microanalysis Reviewed Leukocyte Esterase Rfl Negative (Negative) JOSE/UL Urine RBC 0-2 (0-2) /hpf Urine WBC 0-5 (0-3) /hpf Ur Squamous Epith Cells None seen (Few) /hpf Urine Bacteria None seen /hpf Urine Casts 11-20 Hyaline Casts Present (None) /lpf Urine Opiates Screen Pending Urine Methadone Screen Pending Ur Barbiturates Screen Pending Ur Phencyclidine Scrn Pending Ur Amphetamine Screen Pending U Benzodiazepines Scrn Pending Urine Cocaine Screen Pending U Cannabinoids Screen Pending <Karma Avery APRN - Last Filed: 12/31/24 19:59> Imaging Data Attestation: I personally reviewed and interpreted this imaging study as follows: <Karma Avery APRN - Last Filed: 12/31/24 19:59> Radiologist's impression: Impressions Chest X-Ray 12/31/24 18:00 IMPRESSION: No acute cardiopulmonary process. <Karma Avery APRN - Last Filed: 12/31/24 19:59> Discharge Plan Discharge Clinical Impression: Dehydration, mild <Clarisse Wen PA-C - Last Filed: 12/31/24 17:13> Patient Disposition: Home <Clarisse Wen PA-C - Last Filed: 12/31/24 17:13> Condition: Stable <NEIL Dangelo Last Filed: 12/31/24 17:13> Instructions: Antibiotic Form, Dehydration (ED) <NEIL Dangelo Last Filed: 12/31/24 17:13> Additional Instructions: Please return to the ER with any worsening symptoms. Follow-up with primary care provider as soon as possible. Take all medications as prescribed, including regularly scheduled medications. Please remember to drink lots of water. <Clarisse Wen PA-C - Last Filed: 12/31/24 17:13> Patient Language: Jordanian <Clarisse Wen PA-C - Last Filed: 12/31/24 17:13> Prescriptions: No Action levofloxacin [Levaquin] 750 mg tablet 750 mg PO DAILY Qty: 7 5RF metronidazole [Flagyl] 500 mg tablet 500 mg PO Q8H Qty: 21 0RF buspirone 7.5 mg tablet omeprazole 20 mg capsule,delayed release(DR/EC) escitalopram oxalate 10 mg tablet ciprofloxacin HCl 500 mg tablet 500 mg PO Q12H 7 Days Qty: 14 0RF oxycodone-acetaminophen 5-325 mg tablet 1 tablet PO Q6H PRN (Reason: pain) 3 Days Qty: 14 0RF amoxicillin 875 mg tablet 875 mg PO Q12H 10 Days Qty: 20 0RF <Clarisse Wen PA-C - Last Filed: 12/31/24 17:13> Follow-up/Referrals: Ayush Villagran MD [Physician] - <Clarisse Wen PA-C - Last Filed: 12/31/24 17:13> Stand Alone Forms: Work/School Release IP <Clarisse Wen PA-C - Last Filed: 12/31/24 17:13> Time of Disposition: 19:58 <Clarisse Wen PA-C - Last Filed: 12/31/24 17:13> 19:58 <Karma Avery APRN - Last Filed: 12/31/24 19:59>
[2024-12-31 17:42] LABS: Hematocrit 43.1 % (42.0-52.0); Hemoglobin 14.1 g/dL (14.0-18.0); Immature Granulocyte Percent A 0.2 % (0-0.5); Lymphocytes Absolute Auto 1.69 K/mm3 (0.9-3.2); Mean Corpuscular HGB Conc 32.7 g/dl (32-36); Mean Corpuscular Hemoglobin 29.1 pg (26-34); Mean Corpuscular Volume 88.9 fl (80-100); Nucleated Red Blood Cells Absolute Auto 0.000 K/mm3 (0.0-0.012); Nucleated Red Blood Cells Perc 0.0 % (0.0-0.2); Platelet Count Result 505 k/mm3 (150-375); Red Blood Count 4.85 M/mm3 (4.6-6.20); White Blood Count 13.0 K/mm3 (4.5-10.0)
[2024-12-31] MEDS: SODIUM CHLORIDE 0.9% IV 1,000 ML 999 ML IV CONT (18:01)
[2024-12-31 18:08] VITALS: BP 103/58; PULSE 78; RESP 16; O2SAT 97
[2024-12-31 18:10] VITALS: PULSE 85
[2024-12-31 18:11] LABS: Alanine Aminotransferase 35 U/L (6-50); Albumin Level 4.2 g/dL (3.5-5.1); Alkaline Phosphatase 152 U/L (38-126); Anion Gap 10 mmol/L (4-12); Aspartate Amino Transferase 32 U/L (17-59); Bilirubin,Total 0.5 mg/dL (0.2-1.3); Blood Urea Nitrogen 11 mg/dL (9-20); Calcium 8.7 mg/dL (8.4-10.2); Carbon Dioxide 23 mmol/L (22-30); Chloride 105 mmol/L (98-107); Estimated CRCL calculation 115 ml/min; Estimated Glomerular Filt Rate > 60; Glucose 96 mg/dL (65-110); Magnesium 2.0 mg/dL (1.6-2.3); Potassium 4.2 mmol/L (3.4-5.0); Sodium 138 mmol/L (137-145); Total Protein 7.9 g/dL (6.3-8.2)
[2024-12-31 18:18] LABS: Troponin I < 0.012 ng/mL (0.000-0.034)
[2024-12-31 18:26] LABS: Creatine Kinase 110 U/L (55-170)
--- OUTSIDE RECORDS SUMMARY | 2024-12-31 19:06 | XMS_ITS | Referral Summary ---
Author Organization [facility] Address [address] [place] [address] Care Team Providers Care Farm Equipment Operator Name Role Phone Quinton Suarez NP Primary Care Provider [phone]- [phone] Allergies Active Allergy Reactions Criticality Noted Date Comments Shellfish Containing Products Anaphylaxis High 04/15 Medications busPIRone (BUSPAR) 15 mg tablet 04/13/2022 Active escitalopram (LEXAPRO) 20 mg tablet 04/13/2022 Active famotidine (PEPCID) 20 mg tablet daily 08/19/2021 Active ferrous sulfate 325 mg (65 mg of elemental iron) tablet Take 325 mg by mouth daily 12/11/2019 Active Active Problems Problem Noted Date Diagnosed Date Transient ischemic attack (TIA) 04/15/2022 Social History Tobacco Use Types Packs/Day Years Used Date Smoking Tobacco: Never Smokeless Tobacco: Current Tobacco Cessation:Ready to Q uit: Not Asked; Counseling Given: Not Answered Sex and Gender Information Value Date Recorded Sex Assigned at Not on file Legal Sex Male 11:01 PM CDT Gender Identity Not on file Sexual Orientation Not on file Last Filed Vital Signs Vital Sign Reading Time Taken Comments Blood Pressure 144/86 04/15/2022 2:55 PM EGG TRAYER Pulse 109 04/15/2022 2:55 PM EGG TRAYER Temperature 36.4 C (97.5 F) 04/05/2022 11:46 PM CDT Respiratory Rate 18 04/05/2022 11:4 6 PM CDT Oxygen Saturation 99% 04/06/2022 2:00 AM CDT Inhaled Oxygen Concentration - - Weight 104.7 kg (230 lb 12.8 oz) 04/15/2022 2:55 PM EGG TRAYER Height 172.7 cm (5' 8) 04/15/2022 2:55 PM EGG TRAYER Body Mass Index 35.09 04/15/2022 2:55 PM EGG TRAYER Plan of Treatment Not on file Insurance [employer] HMO/POS [employer] HMO/POS Care Teams Farm Equipment Operator Relationship Specialty Start Date End Date Quinton Suarez NP [address] [place] [address] PCP - General Pain Management 04/15/22
--- OUTSIDE RECORDS SUMMARY | 2024-12-31 19:06 | XMS_ITS | Clinical Summary ---
Author Organization [facility] Address [address] [place] [id number] Care Team Providers Care Rn Quality Name Role Phone Quinton Suarez NP Primary Care Provider +1- [phone] Allergies Active Allergy Reactions Criticality Noted Date [...] Diagnosed Date Transient ischemic attack (TIA) 04/15/2022 Medical History Medical History Date Comments ADHD (attention deficit hyperactivity disorder) Anxiety Depression Migraine TIA (transient ischemic attack) Social History Tobacco Use Types Packs/Day Years Used Date Smoking Tobacco: Never Smokeless Tobacco: Current Tobacco Cessation:Ready to Q uit: Not Asked; Counseling Given: Not Answered Sex and Gender Information Value Date Recorded Sex Assigned at Not on file Legal Sex Male 11:01 PM CDT Gender Identity Not on file Sexual Orientation Not on file Obstetrics History Last Filed Vital Signs Vital Sign Reading Time Taken Comments Blood Pressure 144/86 04/15/2022 2:55 PM PIPE MACHINE OPERATOR Pulse 109 04/15/2022 2:55 PM PIPE MACHINE OPERATOR Temperature 36.4 C (97.5 F) 04/05/2022 11:46 PM CDT Respiratory Rate 18 04/05/2022 11:4 6 PM CDT Oxygen Saturation 99% 04/06/2022 2:00 AM CDT Inhaled Oxygen Concentration - - Weight 104.7 kg (230 lb 12.8 oz) 04/15/2022 2:55 PM PIPE MACHINE OPERATOR Height 172.7 cm (5' 8) 04/15/2022 2:55 PM PIPE MACHINE OPERATOR Body Mass Index 35.09 04/15/2022 2:55 PM PIPE MACHINE OPERATOR Plan of Treatment Health Maintenance Due Date Last Done Comments Depression Screening 1994 Hepatitis C Screening 1994 DTaP/Tdap/Td Vaccine (1 - Tdap) 2005 Varicella Vaccines (1 of 2 - 13+ 2-dose series) 2007 Hepatitis B Screening 2012 Regular Well Visit/Exam 18-64 2012 HPV Vaccines (1 - 3-dose SCD M series) 2021 Influenza Vaccine (#1) 2025 Pneumococcal vaccine <65 Aged Out No longer eligible based on patient's age to complete this topic Insurance [employer] HMO/POS [employer] HMO/POS Care Teams Rn Quality Relationship Specialty Start Date End Date Quinton Suarez NP [address] [place], [place] [id number] PCP - General Pain Management 04/15/22
--- OUTSIDE RECORDS SUMMARY | 2024-12-31 19:06 | XMS_ITS | Continuity of Care Document ---
Author Organization [facility] Address [address] [facility] [place] [place] [address] Phone Care Team Providers Care Trucksmith Name Role Phone Ayush Villagran MD Unavailable [...] Diagnoses Date Provider Providers Copied on Encounter [facility], [address] [place] [address], [id number], [place] tel:[phone] [facility] No Information Aug- 2 Tyshawn Peacock. [address], [place], [place], [id number] , [place]. tel:[phone] Referring Provider: Randy Arango [address], [place], [place], [id number]. tel:[phone] PREV VISIT, EST, AGE 18-39 [facility], [address], [place], [place], [id number], [place] tel:[phone] [facility] physical (chief complaint) Encounter for general adult medical exam w abnormal findingsGeneralized Anxiety DisorderAbnormal level of alkaline phosphataseGERD w/o esophagitisAbnormal weight gainFatigue 0- 1 Tyshawn Peacock. [address], [place], [place], [id number] , [place]. tel:[phone] Referring Provider: Randy Arango [address], [place], [place], [id number]. tel:[phone] OFFICE/OUTPA TIENT VISIT, EST [facility], [address], [place], [place], [id number], [place] tel:[phone] [facility] platelet1 (chief complaint) GERD1 (chief complaint) anxiety1 (chief complaint) Essential thrombocytosisGERD w/o esophagitisAbnormal level of alkaline phosphataseGenerali zed Anxiety DisorderIleitis Dec-0 2 0 Tyshawn Peacock. [address], [place], [place], [id number] , [place]. tel:[phone] Referring Provider: Randy Arango [address], [place], [place], [id number]. tel:[phone] OFFICE/OUTPA TIENT VISIT, EST [facility], [address], [place], [place], [id number], [place] tel:[phone] [facility] abd pain1 (chief complaint) alk phos (chief complaint) Abnormal level of alkaline phosphataseEssentia l thrombocytosisLeuko cytosisIleitisGERD w/o esophagitis Kam-2 8 0 Tyshawn Peacock. [address], [place], [place], [id number] , [place]. [phone] Referring Provider: Randy Arango [address], [place], [place], [id number]. tel:[phone] PREV VISIT, EST, AGE 18-39 [facility], [address], [place], [place], [id number], [place] [phone] [facility] Medicine physical (chief complaint) Encounter for general adult medical exam w abnormal findingsGeneralized Anxiety DisorderAbdominal painFatigueEssentia l (primary) hypertensionGERD w/o esophagitisPain in left upper arm 9 Tyshawn Santiago [address], [place], [place], [id number] , [place]. [phone] Referring Provider: Randy Arango [address], [place], [place], [id number]. tel:[phone] OFFICE/OUTPA TIENT VISIT, EST [facility], [address], [place], [place], [id number], [place] tel:[phone] [facility] anxiety1 (chief complaint) Generalized Anxiety Disorder 0 8 Tyshawn Santiago [address], [place], [place], [id number] , [place]. [phone] Referring Provider: Randy Arango [address], [place], [place], [id number]. tel:[phone] OFFICE/OUTPA TIENT VISIT, EST [facility], [address], [place], [place], [id number], [place] tel:[phone] [facility] anxiety1 (chief complaint) rectal bleeding (chief complaint) chest pain1 (chief complaint) GERD1 (chief complaint) PleurisyGERD w/o esophagitisGenerali zed Anxiety DisorderOccult blood in stool 8 Tyshawn Santiago [address], [place], [place], [id number] , [place]. tel:[phone] Referring Provider: Ayush Villagran, Randy [address], [place], [place], [id number]. tel:[phone] OFFICE/OUTPA TIENT VISIT, EST [facility], [address], [place], [place], [id number], [place] [phone] [facility] anxiety1 (chief complaint) diarrhea1 (chief complaint) chest pain1 (chief complaint) Chest painPleurisyViral infectionGeneralize d Anxiety Disorder Apr-1 8 Tyshawn Peacock. [address], [place], [place], [id number] , [place]. tel:[phone] Referring Provider: Randy Arango [address], [place], [place], [id number]. tel:[phone] PREV VISIT, NEW, AGE 18-39 [facility], [facility] [address], [place], [place], [id number], [place] [phone] [facility] Physical (chief complaint) Encounter for general adult medical exam w abnormal findingsChest painLoss of appetiteGeneralized Anxiety Disorder Apr-0 8 Tyshawn Peacock. [address], [place], [place], [id number] , [place]. [phone] Referring Provider: Randy Arango [address], [place], [place], [id number]. tel:[phone] Family History Family Member Type Diagnosis Age At Onset Maternal grandfather Problem (finding) Coronary artery disease, premature Brother Problem (finding) Alive and well Mother Problem (finding) Alive and well Father Problem (finding) at 40 for unkonwn reason Payers Payer name Insurance type Covered libertarian ID Authoriza tion(s) No Information Social History [...] [address] [place], [place] [id number] Ordered: Referrals: Allopathic & Osteopathic Physicians : [...] Pt gained some weight. Pt is sedentary platelet1 Pt has high plat elet. Pt denies any bleeding or bruising pt is seeing hematology currently and is getting work up GERD1 Pt has GERD Pt h ad [...] for it Pt denies any acute pain anxiety1 Pt has chronic a nxiety and depression .Pt takes lexapro and buspar and doing ok Pt denies any suicidal or homicidal thought ,Pt denies any crying spells. alk phos Pt has high alk phos. Pt has high platelet, high wbc and high neutrophile. Pt denies any bleeding or bruising. abd pain1 Pt c/o acute ons et [...] .Pt does have bloating and burping chronically. physical Pt needs annual physical. pt has [...] he has been checking his BP at [facility] and is running around 130-140s/80 during [...] homicidal thought. Pt denies any crying spells anxiety1 Pt has mild anxi ety and depression. Pt takes lexapro and buspar and he is doing much better. Pt denies any suicidal or homicidal thought. Pt denies any crying spells His mood is getting better rectal bleeding Additional infor mation: Pt notices bright red blood when he wipes x one since yesterday Pt notices mild diarrhea since yesterday. pt denies any abdominal pian Pt notices mild burning around anal area since last night. chest pain1 Pt took zpak and his chest pain resolved. Pt denies any sob Pt denies any palpitation GERD1 Pt denies any GE RD or nausea. Pt stopped zantac anxiety1 Pt has chronic a nxiety and depression and he has been taking lexapro and buspar which did help diarrhea1 Pt has been havi ng watery diarrhea without nausea, vomiting for one week. Pt did have abd pain but resolved. Pt did have nausea, vomiting but has not had above since 3 days ago. pt is able to eat and drink fluid without any issue. Pt denies any fever, chill chest pain1 Pt c/o sharp alyson st [...] do a stress test soon if continues. Physical Pt needs annual physical Pt notices [...] adult Weight management Related to Ple urisy Special diet education Related t o Body mass index (BMI) 29.0-29.9, adult Weight management Related to Alyson st pain Prescribed dietary intake Relate d to Body mass index (BMI) 29.0- 29.9, adult Quit smoking Related to Encou nter for general adult medical exam w abnormal findings Assessments Type Assessment Date No Information
[2024-12-31 19:49] LABS: Add Urine Microscopic? YES; Appearance Urine Clear (Clear); Glucose Urine UA Negative (Negative); Leukocyte Esterase Ur Negative LEU/UL (Negative); Need Manual Microscopic Reviewed; Nitrate Urine Negative (Negative); Specific Grav Ur 1.021 (1.001-1.035)
[2024-12-31 20:03] VITALS: BP 126/74; PULSE 77; RESP 16; O2SAT 99
[2024-12-31 20:05] LABS: Cannabinoid Screen Urine Negative (Negative)
== END 2024-12-31 20:15 | disposition home or self-care (01) ==
PROVIDERS: Physician Assistant; Emergency Provider Registered Nurse; PCP Nurse Practitioner
DX: E86.0 Dehydration (principal)
CPT/HCPCS: 36415; 71045; 80053; 80307; 81001; 82550; 83735; 84484; 85025; 93005; 96360; 99284; J7030